=== PATIENT | female | born 1985 | race African-American/Black ===

== ENCOUNTER 2024-04-24 20:20 | Inpatient (IN) | payer MEDICARE, MEDICAID ==
[~2024-04-24] VITALS: Ht 162.6 cm; Wt 72.8 kg
[~2024-04-24 20:20] MED LIST: invega
[2024-04-24 21:34] LABS: BASOPHILS % (AUTO) 0.8 % (0.0-2.0); EOSINOPHILS % (AUTO) 2.4 % (1.0-6.0); HEMATOCRIT 36.1 % (36-46); HEMOGLOBIN 11.8 g/dL (12.0-16.0); LYMPHOCYTES # (AUTO) 1.8 K/uL (1.0-4.8); LYMPHOCYTES % (AUTO) 32.1 % (22.0-44.0); MEAN CORPUSCULAR HEMOGLOBIN 25.4 pg (26.0-34.0); MEAN CORPUSCULAR HGB CONC 32.5 G/dL (31.0-37.0); MEAN CORPUSCULAR VOLUME 78 fL (80-100); MONOCYTES # (AUTO) 0.3 K/uL (0.1-1.0); MONOCYTES % (AUTO) 6.1 % (2.0-9.0); NEUTROPHILS # (AUTO) 3.3 K/uL (1.8-7.7); NEUTROPHILS % (AUTO) 58.6 % (40.0-70.0); PLATELET COUNT (AUTO) 348 K/uL (150-450); RED BLOOD CELL COUNT(AUTO) 4.63 MIL/uL (4.00-5.20); WHITE BLOOD COUNT (AUTO) 5.7 K/uL (4.5-11.0)
[2024-04-24 21:50] LABS: ANION GAP 9 mmol/L (8-16); CARBON DIOXIDE 24 mmol/L (22-29); CHLORIDE 99 mmol/L (98-107); CREATININE 0.86 mg/dL (0.60-1.30); GLOMERULAR FILTR. RATE CALC > 60 mL/min (>60); GLUCOSE,RANDOM 306 mg/dL (70-110); POTASSIUM 4.1 mmol/L (3.5-5.1); SODIUM SERUM 132 mmol/L (136-145); UREA NITROGEN, BLOOD 11 mg/dL (7-18)
[2024-04-24 22:02] LABS: ALCOHOL, BLOOD (SERUM) < 3 mg/dL (0-10)
[2024-04-24] MEDS: DiphenhydrAMINE HCL 50 MG/ML VIAL IM ONE (23:18)
[2024-04-24] MEDS: HALOPERIDOL LACTATE 5 MG/ML VIAL IM ONE (23:18)
[2024-04-24] MEDS: LORazepam 2 MG/ML VIAL IM ONE (23:19)
[2024-04-24] MEDS: DiphenhydrAMINE HCL 25 MG CAPSULE PO ONE (23:32)
[2024-04-24 23:41] LABS: PH,URINE DRUG SCREEN 5.5 (5.0-8.0)
[2024-04-24] MEDS: LORazepam 2 MG TABLET PO ONE (23:42)
[2024-04-24 23:50] LABS: ALCOHOL, URINE DRUG SCREEN NEGATIVE (NEGATIVE); AMPHET/METH SCREEN,URINE NEGATIVE (NEGATIVE); BARBITURATE SCREEN, URINE NEGATIVE (NEGATIVE); BENZODIAZEPINES SCREEN,URINE NEGATIVE (NEGATIVE); CANNABINOID SCREEN,URINE NEGATIVE (NEGATIVE); COCAINE SCREEN,URINE NEGATIVE (NEGATIVE); METHADONE SCREEN, URINE NEGATIVE (NEGATIVE); OPIATE SCREEN,URINE NEGATIVE (NEGATIVE); PHENCYCLIDINE SCREEN,URINE NEGATIVE (NEGATIVE)
[2024-04-25 00:57] LABS: COVID AG,FIA SOURCE NASAL SWAB
[2024-04-25 01:03] LABS: SARS-COV2 (COVID) ANTIGEN,FIA Negative (Negative)
[2024-04-25] MEDS ORDERED: HALOPERIDOL 5 MG TABLET PO PRN (02:00)
[2024-04-25 02:05] VITALS: O2SAT 100
[2024-04-25 03:24] VITALS: BP 91/66; PULSE 98; RESP 18; TEMP 98
[2024-04-25] MEDS ORDERED: GLUCAGON,HUMAN RECOMBINANT 1 MG VIAL IM PRN (07:00)
[2024-04-25 08:16] VITALS: BP 107/67; PULSE 60; RESP 16; TEMP 97.3; O2SAT 98
[2024-04-25] MEDS: NICOTINE 14 MG/24 HOUR PATCH TD SCH (08:36)
[2024-04-25 08:41] LABS: GLUCOMETER DEV NAME(LOC) ERT.5; GLUCOSE,POINT OF CARE 309 MG/DL (70-110)
[2024-04-25] MEDS ORDERED: NICOTINE 14 MG/24 HOUR PATCH TD ONE (09:00)
[2024-04-25 09:01] LABS: HEMOGLOBIN A1C 9.7 % (3.8-5.6)
[2024-04-25 09:21] LABS: CHOL/HDL RATIO 4.6 (3.9-5.7); FREE T4 (FREE THYROXINE) 0.81 ng/dL (0.76-1.46); THYROID STIMULATING HORMONE 3.04 uIU/mL (0.36-3.74)
[2024-04-25] MEDS: RisperiDONE 2 MG TABLET PO SCH (11:26)
[2024-04-25] MEDS: LITHIUM CARBONATE 300 MG TABLET PO SCH (11:27)
[2024-04-25] MEDS: INSULIN LISPRO 100 UNITS/ML SQ PRN (11:40)
[2024-04-25 11:55] LABS: GLUCOMETER DEV NAME(LOC) BV3S.; GLUCOSE,POINT OF CARE 302 MG/DL (70-110)
[2024-04-25] MEDS ORDERED: PETROLATUM,WHITE 28 GM JELLY TP PRN (15:15)
[2024-04-25] MEDS ORDERED: MAGNESIUM HYDROXIDE SUSPENSION 30 ML UDCUP PO PRN (15:15)
[2024-04-25] MEDS ORDERED: DOCUSATE SODIUM 100 MG CAPSULE PO PRN (15:15)
[2024-04-25] MEDS ORDERED: LOPERAMIDE HCL 2 MG CAPSULE PO PRN (15:15)
[2024-04-25] MEDS ORDERED: MAG HYDROX/ALUMINUM HYD/SIMETH ES 30 ML SUSPENSION UDCUP PO PRN (15:15)
[2024-04-25] MEDS ORDERED: ONDANSETRON 4 MG TABLET PO PRN (15:15)
[2024-04-25] MEDS ORDERED: GuaiFENesin/D-METHORPHAN [SUGAR-FREE] 200-20MG/10 ML SYRUP UDCUP PO PRN (15:15)
[2024-04-25] MEDS ORDERED: CloNIDine HCL 0.1 MG TABLET PO PRN (15:15)
[2024-04-25] MEDS ORDERED: ALBUTEROL SULFATE HFA 90 MCG/PUFF 8 GM INHALER IH PRN (15:15)
[2024-04-25] MEDS ORDERED: ACETAMINOPHEN 325 MG TABLET PO PRN (15:15)
[2024-04-25] MEDS ORDERED: IBUPROFEN 400 MG TABLET PO PRN (15:15)
[2024-04-25] MEDS ORDERED: NICOTINE 14 MG/24 HOUR PATCH TD PRN (15:15)
[2024-04-25 16:55] LABS: GLUCOMETER DEV NAME(LOC) BV3S.; GLUCOSE,POINT OF CARE 384 MG/DL (70-110)
[2024-04-25 20:00] VITALS: BP 145/85; PULSE 92; RESP 16; TEMP 98; O2SAT 98
[2024-04-25 21:21] LABS: GLUCOMETER DEV NAME(LOC) BV3S.; GLUCOSE,POINT OF CARE 267 MG/DL (70-110)
[2024-04-25] MEDS: ZOLPIDEM TARTRATE 10 MG TABLET PO PRN (21:43)
[2024-04-25] MEDS: LORazepam 2 MG TABLET PO PRN (21:43)
[2024-04-26 06:45] LABS: GLUCOMETER DEV NAME(LOC) BV3S.; GLUCOSE,POINT OF CARE 260 MG/DL (70-110)
[2024-04-26 08:18] VITALS: BP 126/83; PULSE 65; RESP 19; TEMP 98; O2SAT 100
[2024-04-26 08:33] LABS: HEMOGLOBIN A1C 9.9 % (3.8-5.6)
[2024-04-26 08:52] LABS: CHOL/HDL RATIO 4.3 (3.9-5.7); THYROID STIMULATING HORMONE 5.04 uIU/mL (0.36-3.74)
[2024-04-26 11:55] LABS: GLUCOMETER DEV NAME(LOC) BV3S.; GLUCOSE,POINT OF CARE 382 MG/DL (70-110)
[2024-04-26 16:51] LABS: GLUCOMETER DEV NAME(LOC) BV3S.; GLUCOSE,POINT OF CARE 229 MG/DL (70-110)
[2024-04-26 20:39] VITALS: BP 126/89; PULSE 100; RESP 20; TEMP 97.7; O2SAT 98
[2024-04-26 21:25] LABS: GLUCOMETER DEV NAME(LOC) BV3S.; GLUCOSE,POINT OF CARE 256 MG/DL (70-110)
[2024-04-27 07:01] LABS: GLUCOMETER DEV NAME(LOC) BV3S.; GLUCOSE,POINT OF CARE 293 MG/DL (70-110)
[2024-04-27 08:24] VITALS: BP 100/60; PULSE 84; RESP 16; TEMP 97.6; O2SAT 98
[2024-04-27] MEDS: EMTRICITABINE/TENOFOVIR 200-300 MG TABLET PO SCH (08:34)
[2024-04-27 09:03] LABS: APPEARANCE,URINE CLEAR (CLEAR); BILIRUBIN,URINE NEGATIVE (NEGATIVE); COLOR,URINE LIGHT YELLOW (YELLOW); GLUCOSE, URINE (UA) >=1000 mg/dL (NEGATIVE); KETONES,URINE NEGATIVE (NEGATIVE); LEUKOCYTE ESTERASE ,URINE NEGATIVE (NEGATIVE); NITRATE,URINE NEGATIVE (NEGATIVE); OCCULT BLOOD,URINE NEGATIVE (NEGATIVE); PH,URINE 7.5 (5.0-8.0); PH,URINE DRUG SCREEN 7.5 (5.0-8.0); PROTEIN,URINE NEGATIVE (NEGATIVE); SPECIFIC GRAVITIY, URINE 1.016 (1.003-1.030); UROBILINOGEN,URINE <=1.0 mg/dL (<=1.0)
[2024-04-27 09:17] LABS: ALCOHOL, URINE DRUG SCREEN NEGATIVE (NEGATIVE); AMPHET/METH SCREEN,URINE NEGATIVE (NEGATIVE); BARBITURATE SCREEN, URINE NEGATIVE (NEGATIVE); BENZODIAZEPINES SCREEN,URINE NEGATIVE (NEGATIVE); CANNABINOID SCREEN,URINE NEGATIVE (NEGATIVE); COCAINE SCREEN,URINE NEGATIVE (NEGATIVE); METHADONE SCREEN, URINE NEGATIVE (NEGATIVE); OPIATE SCREEN,URINE NEGATIVE (NEGATIVE); PHENCYCLIDINE SCREEN,URINE NEGATIVE (NEGATIVE)
[2024-04-27 09:41] LABS: BACTERIA,URINE None Seen /HPF (None Seen); RBC,URINE 0-2 /HPF (0-2); WBC,URINE None Seen /HPF (0-5)
[2024-04-27] MEDS: INSULIN LISPRO 100 UNITS/ML SQ ONE (11:48)
[2024-04-27 12:11] LABS: GLUCOMETER DEV NAME(LOC) BV3S.; GLUCOSE,POINT OF CARE 426 MG/DL (70-110)
[2024-04-27] MEDS: MetFORMIN HCL 500 MG TABLET PO SCH (17:52)
[2024-04-27 20:15] VITALS: BP 137/90; PULSE 100; RESP 16; TEMP 98.2; O2SAT 98
[2024-04-27 20:46] LABS: GLUCOMETER DEV NAME(LOC) BV3S.; GLUCOSE,POINT OF CARE 312 MG/DL (70-110)
[2024-04-28 06:30] LABS: GLUCOMETER DEV NAME(LOC) BV3S.; GLUCOSE,POINT OF CARE 251 MG/DL (70-110)
[2024-04-28 08:43] VITALS: BP 122/69; PULSE 82; RESP 16; TEMP 97.3; O2SAT 99
[2024-04-28] MEDS ORDERED: RISP-32 PO (09:41)
[2024-04-28] MEDS ORDERED: LITH300T PO (09:41)
[2024-04-28] MEDS ORDERED: METF-1211 PO (09:41)
[2024-04-28] MEDS ORDERED: EMTR1TAB23 PO (09:41)
[2024-04-28 13:51] LABS: GLUCOMETER DEV NAME(LOC) BV3S.; GLUCOSE,POINT OF CARE 292 MG/DL (70-110)
== END 2024-04-28 12:48 | disposition home or self-care (01) | DRG 885 ==
LOC: EMS 20:20 → B3A 04-25 01:56
PROVIDERS: ADMIT Psychiatry & Neurology Psychiatry; ATTEND Psychiatry & Neurology Psychiatry
PROC: GZHZZZZ Group Psychotherapy (ICD-10-PCS; principal; 2024-04-25)
PROC: GZ51ZZZ Individual Psychotherapy, Behavioral (ICD-10-PCS; 2024-04-25)
DX: F20.0 Paranoid schizophrenia (principal); E11.65 Type 2 diabetes mellitus with hyperglycemia; E87.1 Hypo-osmolality and hyponatremia; R45.851 Suicidal ideations; Z20.822 Contact with and (suspected) exposure to COVID-19; D64.9 Anemia, unspecified; F12.90 Cannabis use, unspecified, uncomplicated; Z79.899 Other long term (current) drug therapy; Z87.891 Personal history of nicotine dependence
CPT/HCPCS: 80048; 80061; 80307; 81001; 82962; 83036; 84439; 84443; 84703; 85025; 99285; G0480; J1815